=== PATIENT | female | born 1970 | race Hispanic/Latino ===

== ENCOUNTER 2021-02-22 17:29 | Emergency (ER) | payer MEDICAID ==
[~2021-02-22] VITALS: Ht 149.9 cm; Wt 70.8 kg
[2021-02-22 17:40] VITALS: BP 134/76
[2021-02-22 17:55] LABS: BASOPHILS % (AUTO) 0.6 % (0.0-5.0); EOSINOPHILS % (AUTO) 1.6 % (0.0-8.0); HEMATOCRIT 41.3 % (36-48); LYMPHOCYTES % (AUTO) 35.2 % (21.0-51.0); MEAN CORPUSCULAR HEMOGLOBIN 27.8 pg (27.0-33.0); MEAN CORPUSCULAR HGB CONC 32.7 g/dL (32.0-36.0); MEAN CORPUSCULAR VOLUME 85.2 fL (79-99); MONOCYTES % (AUTO) 7.3 % (3.0-13.0); PLATELET COUNT (AUTO) 203 K/uL (130-400); RED BLOOD CELL COUNT(AUTO) 4.85 MIL/uL (4.00-5.50); RED CELL DISTRIBUTION WIDTH 12.8 % (11.0-15.5); WHITE BLOOD COUNT (AUTO) 7.9 K/uL (4.8-10.8)
[2021-02-22 17:56] LABS: APPEARANCE,URINE Clear (CLEAR); BILIRUBIN,URINE Negative (NEGATIVE); COLOR,URINE Yellow (YELLOW); GLUCOSE, URINE (UA) Negative (NEGATIVE); KETONES,URINE Negative (NEGATIVE); LEUKOCYTE ESTERASE ,URINE Small (NEGATIVE); NITRATE,URINE Negative (NEGATIVE); OCCULT BLOOD,URINE Negative (NEGATIVE); PROTEIN,URINE Negative (NEGATIVE); UROBILINOGEN,URINE 0.2 mg/dL (0.2-1.0)
[2021-02-22] MEDS ORDERED: KETOROLAC 60 MG VIAL (30MG/ML) IM ONE (18:00)
[2021-02-22] MEDS ORDERED: CYCLOBENZAPRINE HCL 10 MG TABLET PO ONE (18:00)
[2021-02-22] MEDS ORDERED: CYCLOBENZAPRINE HCL 10 MG TABLET ONE (18:06)
[2021-02-22] MEDS ORDERED: KETOROLAC 60 MG VIAL (30MG/ML) ONE (18:06)
[2021-02-22 18:07] LABS: CREATININE 0.6 mg/dL (0.5-1.5); POTASSIUM 3.7 mmol/L (3.5-5.1)
[2021-02-22 18:12] LABS: ALBUMIN 3.6 g/dL (3.5-5.0); BILIRUBIN,TOTAL 0.4 mg/dL (0.2-1.0); TOTAL PROTEIN, SERUM 7.7 g/dL (6.0-8.3)
[2021-02-22 18:30] LABS: RBC,URINE None Seen /HPF (0-1)
[2021-02-22 18:31] LABS: BACTERIA,URINE Few /HPF (None Seen)
[2021-02-22] MEDS ORDERED: ACET650T9 PO (19:15)
[2021-02-22] MEDS ORDERED: MELO7.5T12 PO (19:44)
[2021-02-22] MEDS ORDERED: CYCL10 PO (19:44)
[2021-02-22 19:48] VITALS: BP 131/82
== END 2021-02-22 19:56 | disposition home or self-care (01) ==
LOC: EDH 17:29
DX: M94.0 Chondrocostal junction syndrome [Tietze] (principal); R07.89 Other chest pain; Z79.1 Long term (current) use of non-steroidal anti-inflammatories (NSAID)
CPT/HCPCS: 36415; 71045; 80053; 81001; 84484; 85025; 93005; 96372; J1885

== ENCOUNTER → 2023-09-19 | Outpatient (CLI) | payer MEDICAID ==
[~2023-09-19] MED LIST: ACET650T9 PO; CYCL10TA16 PO; IOHEXOL-350 75 ML VIAL IV ONE; MELO7.5T12 PO
== END | disposition home or self-care (01) ==
LOC: RAH 07:49
PROVIDERS: ATTEND Surgery
DX: K57.92 Diverticulitis of intestine, part unspecified, without perforation or abscess without bleeding (principal); M47.815 Spondylosis without myelopathy or radiculopathy, thoracolumbar region; R16.0 Hepatomegaly, not elsewhere classified
CPT/HCPCS: 74177; Q9967